=== PATIENT | male | born 1985 | race African-American/Black ===

== ENCOUNTER 2016-09-23 07:21 | Inpatient (IN) | payer BC ==
[~2016-09-23] VITALS: Ht 188 cm; Wt 128.2 kg
[~2016-09-23 07:21] MED LIST: AMOXICILLIN500 MG PO; MOTRIN800 MG PO
[2016-09-23 07:28] VITALS: BP 148/84
[2016-09-23] MEDS ORDERED: LISINOPRIL20 MG PO (07:28)
[2016-09-23] MEDS ORDERED: NIFEDIPINE ER60 M1 PO (07:29)
[2016-09-23] MEDS ORDERED: HYDROCHLOROTHIA25 M1 PO (07:29)
[2016-09-23] MEDS ORDERED: CARVEDILOL25 MG PO (07:29)
[2016-09-23 08:11] LABS: BILIRUBIN NEGATIVE (NEGATIVE); BLOOD TRACE-LYSED (NEGATIVE); CLARITY CLEAR (CLEAR); COLOR YELLOW (YELLOW); GLUCOSE 3+ (NEGATIVE); KETONE NEGATIVE (NEGATIVE); LEUKO ESTERASE NEGATIVE (NEGATIVE); NITRITE NEGATIVE (NEGATIVE); PH 5.5 (5.0-9.0); PROTEIN TRACE (NEGATIVE); SPECIFIC GRAVITY <= 1.005 (1.005-1.030); UROBILINOGEN 0.2 E.U./dl (0.2-1.0)
[2016-09-23 08:17] LABS: BASO % 0.2 % (0.0-1.0); EOS # 0.2 10*3/uL (0.0-0.4); EOS % 1.2 % (1.0-4.0); HEMATOCRIT 40.3 % (42.0-52.0); HEMOGLOBIN 14.3 g/dl (14.0-18.0); IG # 0.1 10*3/uL (0.0-0.1); LYMPH # 2.2 10*3/uL (1.3-4.4); MEAN CELL VOLUME 82.1 fl (80.0-94.0); MEAN CORPUSCULAR HGB 29.1 pg (27.0-31.0); MEAN CORPUSCULAR HGB CONC 35.5 g/dl (33.0-37.0); MONO # 0.9 10*3/uL (0.1-1.0); MONO % 6.7 % (3.0-9.0); NEUT # 9.6 10*3/uL (2.3-7.9); NEUT % 74.5 % (47.0-73.0); PLATELET COUNT AUTOMATED 312 10*3/uL (130-400); RED BLOOD COUNT 4.91 10*6/uL (4.50-5.90); RED CELL DISTRI WIDTH 12.3 % (0-14.5); WHITE BLOOD COUNT 12.9 10*3/uL (4.8-10.8)
[2016-09-23 08:22] LABS: RBC 0-2 rbc/hpf (0-2)
[2016-09-23 08:23] LABS: BACTERIA TRACE
[2016-09-23 08:24] LABS: URINE REFLEX COMMENT NO (NO)
[2016-09-23 08:30] VITALS: BP 148/92
[2016-09-23 08:30] LABS: POTASSIUM 4.5 mmol/L (3.5-5.1)
[2016-09-23 09:30] VITALS: BP 138/82
[2016-09-23 10:19] VITALS: BP 145/87
[2016-09-23 10:45] VITALS: BP 155/93
[2016-09-23 11:28] LABS: CKMB 2.5 ng/ml (0.5-3.6); CPK 520 U/L (39-308)
[2016-09-23 11:35] LABS: TROPONIN I < 0.015 ng/ml (<0.045)
[2016-09-23 13:54] LABS: URINE AMPHETAMINES < 1000 (1000ng/ml); URINE BARBITURATES < 200 (200ng/ml); URINE COCAINE < 300 (300ng/ml)
[2016-09-23 16:01] VITALS: BP 162/98
[2016-09-23 18:05] LABS: CKMB 2.4 ng/ml (0.5-3.6); CPK 480 U/L (39-308)
[2016-09-23 18:08] LABS: TROPONIN I < 0.015 ng/ml (<0.045)
[2016-09-24] VITALS: BP 168/101
[2016-09-24 00:45] LABS: CKMB 2.6 ng/ml (0.5-3.6); CPK 501 U/L (39-308); TROPONIN I < 0.015 ng/ml (<0.045)
[2016-09-24 05:55] LABS: BASO % 0.3 % (0.0-1.0); EOS # 0.2 10*3/uL (0.0-0.4); EOS % 2.1 % (1.0-4.0); HEMATOCRIT 42.1 % (42.0-52.0); HEMOGLOBIN 14.8 g/dl (14.0-18.0); IG # 0.1 10*3/uL (0.0-0.1); LYMPH # 2.5 10*3/uL (1.3-4.4); LYMPH % 21.5 % (27.0-41.0); MEAN CELL VOLUME 83.5 fl (80.0-94.0); MEAN CORPUSCULAR HGB 29.4 pg (27.0-31.0); MEAN CORPUSCULAR HGB CONC 35.2 g/dl (33.0-37.0); MEAN PLATELET VOLUME 11.2 fl (9.6-12.3); MONO # 0.8 10*3/uL (0.1-1.0); NEUT # 7.9 10*3/uL (2.3-7.9); NEUT % 68.7 % (47.0-73.0); PLATELET COUNT AUTOMATED 317 10*3/uL (130-400); RED BLOOD COUNT 5.04 10*6/uL (4.50-5.90); RED CELL DISTRI WIDTH 12.7 % (0-14.5); WHITE BLOOD COUNT 11.5 10*3/uL (4.8-10.8)
[2016-09-24 05:59] LABS: HEMOGLOBIN A1c 11.3 % (4.8-5.6)
[2016-09-24 06:06] LABS: CHLORIDE 104 mmol/L (98-107); SODIUM 138 mmol/L (136-145)
[2016-09-24 06:12] LABS: INTERNATIONAL NORM RATIO 0.9 (2.0-3.5)
[2016-09-24 06:17] LABS: ALBUMIN 3.4 gm/dl (3.1-4.5); ALKALINE PHOSPHATASE 118 U/L (45-117); BILIRUBIN, TOTAL 0.8 mg/dl (0.2-1.0); CARBON DIOXIDE 27 mmol/L (21-32); CHOLESTEROL 128 mg/dL (<200); EST GLOM FILT AFRICAN AMERICAN > 60 ml/min; GLUCOSE 321 mg/dL (65-99); HDL CHOLESTEROL 23 mg/dl (40-60); LDL CHOLESTEROL 75 mg/dL (9-159); MAGNESIUM 2.2 mg/dL (1.5-2.1); PHOSPHOROUS 2.9 mg/dL (2.5-4.9); SGOT/AST 79 IU/L (3-35); SGPT/ALT 69 U/L (12-78); THYROID STIM HORMONE (HS) 0.904 uIU/ml (0.358-4.75); TOTAL PROTEIN 7.6 gm/dL (6.4-8.2); TRIGLYCERIDES 152 mg/dl (<150); VLDL CHOLESTEROL 30 mg/dL (6-40)
[2016-09-24 06:18] LABS: BUN 17 mg/dl (7-24)
[2016-09-24 06:52] LABS: VITAMIN D, 25-HYDROXY 22.8 ng/mL (30-100)
[2016-09-24 08:00] VITALS: BP 164/100
[2016-09-24] MEDS ORDERED: APRESOLINE10 MG PO (11:06)
[2016-09-24 11:08] VITALS: BP 147/94
[2016-09-24] MEDS ORDERED: HUMALOG100 U/ML SC (11:10)
[2016-09-24] MEDS ORDERED: LEVEMIR10 ML SC ×2 (11:10→16:53)
[2016-09-24 14:18] VITALS: BP 153/80
[2016-09-24 16:00] VITALS: BP 139/79
== END 2016-09-24 18:16 | disposition home or self-care (01) | DRG 637 ==
LOC: ED 07:21 → EDHOLD 09:15 → ICCU 09:26
PROVIDERS: Emergency Medicine; Internal Medicine
DX: E11.00 Type 2 diabetes mellitus with hyperosmolarity without nonketotic hyperglycemic-hyperosmolar coma (NKHHC) (principal); N17.0 Acute kidney failure with tubular necrosis; E87.1 Hypo-osmolality and hyponatremia; I10 Essential (primary) hypertension; D72.820 Lymphocytosis (symptomatic); F17.210 Nicotine dependence, cigarettes, uncomplicated; Z82.49 Family history of ischemic heart disease and other diseases of the circulatory system; Z91.041 Radiographic dye allergy status; Z80.8 Family history of malignant neoplasm of other organs or systems; Z79.899 Other long term (current) drug therapy

== ENCOUNTER 2017-03-24 20:59 | Inpatient (IN) | payer SELFPAY ==
[~2017-03-24] VITALS: Ht 187.9 cm; Wt 129.0 kg
--- NOTE | ~2017-03-24 | PR ---
[place], [place] PROGRESS NOTE NAME: ALFRED BLANTON UNIT #: [id number] ROOM: 515 DOCTOR: SANKET WHITT MD BIRTHDATE: [birth year] DOS: SUBJECTIVE: The patient has no complaints today. His blood pressure did go up during the night and was given one dose of clonidine. The pressure did come down after the medicine was given. This morning, he does not have any complaints of chest pains, but his pressure is starting to go up again. OBJECTIVE: VITAL SIGNS: When I examined him, his blood pressure was 160/92, pulse of 78, respirations 18, temperature 98.3. LUNGS: Clear. HEART: Regular. ABDOMEN: Obese, soft, nontender. EXTREMITIES: Without any edema. ASSESSMENT AND PLAN: 1. Benign hypertension, poorly controlled. Clonidine will be started. He is on multiple other medications. If that brings the pressure down, the plan is to discharge him to home. 2. Chest pains, with negative workup so far. SANKET WHITT MD CM:PNTRANS [id number] SANKET WHITT MD 03/26/172133 interface
--- NOTE | ~2017-03-24 | PR ---
[place], [place] PROGRESS NOTE [id number] UN[facility] #: [id number] ROOM: 515 DOCTOR: SANKET WHITT MD BIRTHDATE: [birth year] DOS: SUBJECTIVE: The patient is doing fine without any complaints this morning. OBJECTIVE: VITAL SIGNS: Blood pressure is 131/80, pulse of 58, respirations 18 and temperature 97.8. LUNGS: Clear. HEART: Regular. ABDOMEN: Obese, soft, nontender. EXTREMITIES: Without any edema. LABORATORY DATA: Echocardiogram done shows mild left ventricular hypertrophy with global hypokinesis with reduced systolic ejection fraction. Stress test performed earlier showed no perfusion defects with evidence of dilated cardiomyopathy. ASSESSMENT AND PLAN: 1. Dilated cardiomyopathy with poorly controlled hypertension with a negative stress test on medications, pressure is improving. 2. Hypokalemia. Supplementation will be given. The patient is advised to follow up with his physicians. 3. Type 2 diabetes mellitus, insulin dependent. Blood sugars have been controlled here. SANKET WHITT MD CM:PNTRANS [id number] SANKET WHITT MD 03/27/17 2234 interface
--- NOTE | ~2017-03-24 | WRIGHTHP ---
[place], [place] PATIENT HISTORY AND PHYSICAL EXAM NAME: ALFRED BLANTON [facility] #: [id number] UNIT #: [id number] ROOM: [facility] DOCTOR: DAVID EVANGELISTA MD BIRTHDATE: [birth year] DOS: 03/25/2017 HISTORY OF PRESENT ILLNESS: The patient is a 31-year-old gentleman who presented to the Emergency Department with complaints of chest pains when he was at work. 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 The patient rested for a few minutes, but the pain continued. The pain was sharp and stabbing and substernal and radiated into the back. The patient was given aspirin and nitro, which helped his pain and he came to the Emergency Department. The patient was admitted to [facility] and his cardiac enzymes were checked and finally he was taken for a cardiac stress test by Dr. Sullivan, which was normal. Case was discussed with Dr. Sullivan today and the patient has been cleared for discharge to home. REVIEW OF SYSTEMS: LUNGS: No increasing shortness of breath or wheezing. GASTROINTESTINAL: No nausea, vomiting, diarrhea or constipation. CARDIOVASCULAR: Stabbing chest pains. SOCIAL HISTORY: Smokes cigarettes occasionally. Denies any alcohol or drug abuse. FAMILY HISTORY: Noncontributory. PAST MEDICAL HISTORY: The patient has past medical history of hypertension, type 2 diabetes mellitus, obesity. HOME MEDICATIONS: Nifedipine, losartan, hydrochlorothiazide, Coreg. PHYSICAL EXAMINATION: GENERAL: Alert and oriented x 3, in no visible distress. HEENT AND NECK: Extraocular movements are intact. Sclerae are anicteric. Oral mucosa is moist and clean. No obvious facial weakness. Neck is supple without any lymphadenopathy. No thyromegaly. No JVD. No carotid arterial bruits. LUNGS: Clear to auscultation. No wheezing. No rhonchi. CARDIOVASCULAR SYSTEM: Heart rate is regular in rate and rhythm. S1 and S2 normally audible. No significant murmur or any other abnormal cardiac sounds. ABDOMEN: Soft, nontender. No obvious organomegaly. Bowel sounds are present. No obvious herniation. EXTREMITIES: Without significant cyanosis or edema. Warm to touch. CENTRAL NERVOUS SYSTEM: Alert and oriented x 3. Cranial nerves II-XII are intact. Speech is normal. The patient is able to move all extremities. Normal muscle strength. Deep tendon reflexes are equal on both sides. Plantars were downgoing. LABORATORY DATA: Negative cardiac enzymes. Cardiac stress test showing 50% left ventricular ejection fraction and dilated left ventricle, but no signs of reversible ischemia. Chest x-ray without any acute abnormality. BUN and creatinine 23 and 1.5. Normal CBC. [place], [place] PATIENT HISTORY AND PHYSICAL EXAM NAME: ALFRED BLANTON UNIT #: [id number] ROOM: [facility] DOCTOR: DAVID EVANGELISTA MD BIRTHDATE: [birth year] IMPRESSION: 1. The patient with chest pains from uncertain etiology. 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 2. Dilated cardiomyopathy with left ventricular ejection fraction of about 50%, probable hypertensive cardiomyopathy. Blood pressure medications were adjusted by Dr. Maldonado. Plan to keep the patient until tomorrow morning and Dr. Sullivan will adjust his medications before discharging him to home. Cardiac enzymes are normal. Stress test results as mentioned above. DISCHARGE MANAGEMENT: Coreg 25 mg b.i.d., hydrochlorothiazide 12.5 mg a day, losartan 25 mg a day, nifedipine 60 mg a day. DAVID EVANGELISTA MD CM:HISPHYS:PATIENT HISTORY AND PHYSICAL EXAMINATION [id number] DAVID EVANGELISTA MD 03/25/172024 interface
--- NOTE | ~2017-03-24 | DS ---
[place], [place] DISCHARGE SUMMARY [id number] UN[facility] #: [id number] ROOM: 515 DOCTOR: SANKET WHITT MD BIRTHDATE: [birth year] DOS: 03/27/2017 HOSPITAL COURSE: The patient is 31 years old, not known to me. Please refer H and P dictated by Dr. Ayala and consult note dictated by Dr. Sullivan for further details. The patient was admitted with complaints of chest pain. After admission, had a rule out IN protocol, this has come back negative. An echocardiogram and a stress test was performed. Echocardiogram showed evidence of cardiomyopathy. Stress test also confirmed the evidence of dilated cardiomyopathy, but did not show any reversible perfusion defects. His blood pressure has been poorly controlled. His medications were adjusted here with better control of the blood pressure. He also has underlying type 2 diabetes mellitus, insulin-dependent. Blood sugars are controlled. Hypokalemia was noted this morning and the patient has been placed on supplements in addition. The plan is to discharge him to home today if cleared by Dr. uSllivan. SANKET WHITT MD CM:DISCHARG [id number] SANKET WHITT MD 03/27/17 1445 interface
[~2017-03-24 20:59] MED LIST changes: +APRESOLINE10 MG PO; +CARVEDILOL25 MG PO; +HUMALOG100 U/ML SC; +HYDROCHLOROTHIA25 M1 PO; +LEVEMIR10 ML SC; +LISINOPRIL20 MG PO; +NIFEDIPINE ER60 M1 PO
[2017-03-24 21:00] VITALS: BP 186/108
[2017-03-24 21:18] LABS: BASO # 0.1 10*3/uL (0.0-0.1); BASO % 0.4 % (0.0-1.0); EOS # 0.1 10*3/uL (0.0-0.4); EOS % 1.1 % (1.0-4.0); HEMATOCRIT 45.8 % (42.0-52.0); HEMOGLOBIN 15.8 g/dl (14.0-18.0); LYMPH % 17.6 % (27.0-41.0); MEAN CELL VOLUME 85.8 fl (80.0-94.0); MEAN CORPUSCULAR HGB 29.6 pg (27.0-31.0); MEAN CORPUSCULAR HGB CONC 34.5 g/dl (33.0-37.0); MEAN PLATELET VOLUME 10.5 fl (9.6-12.3); MONO # 1.1 10*3/uL (0.1-1.0); MONO % 9.8 % (3.0-9.0); NEUT # 7.9 10*3/uL (2.3-7.9); NEUT % 70.8 % (47.0-73.0); PLATELET COUNT AUTOMATED 317 10*3/uL (130-400); RED BLOOD COUNT 5.34 10*6/uL (4.50-5.90); RED CELL DISTRI WIDTH 13.8 % (0-14.5); WHITE BLOOD COUNT 11.2 10*3/uL (4.8-10.8)
[2017-03-24 21:42] LABS: ACT PARTIAL THROMBO TIME 25.5 SECONDS (20.8-31.5)
[2017-03-24 21:48] LABS: ALBUMIN 3.4 gm/dl (3.1-4.5); ALKALINE PHOSPHATASE 94 U/L (45-117); BUN 23 mg/dl (7-24); CHLORIDE 107 mmol/L (98-107); CREATININE 1.52 mg/dL (0.70-1.30); MAGNESIUM 2.3 mg/dL (1.5-2.1); POTASSIUM 3.8 mmol/L (3.5-5.1); SGPT/ALT 44 U/L (12-78); SODIUM 142 mmol/L (136-145); TOTAL PROTEIN 7.7 gm/dL (6.4-8.2)
[2017-03-24 21:50] LABS: SGOT/AST 26 IU/L (3-35); TROPONIN I 0.023 ng/ml (<0.045)
[2017-03-24 22:44] VITALS: BP 123/76
--- NOTE | 2017-03-24 22:51 | NUR ---
PATIENT REPORTS A SPLITTING HEADACHE BUT HAS RELIEF FROM HIS CHEST DISCOMFORT AND SOB. LIGHTS DIMMED FOR PATIENT AND DOOR CLOSED. PATIENT HAS CALL LIGHT WITHIN REACH.
[2017-03-24 23:32] VITALS: BP 131/76
[2017-03-25 00:30] VITALS: BP 157/87
--- NOTE | 2017-03-25 00:30 | NUR ---
A 31, admitted to , under the services of Dr. TONJA ROYAL,DAVID Cavanaugh with a diagnosis of CHEST PAIN. Chief complaint is CHEST PAIN. Patient arrived via bed from ER. Monitor applied. Initial assessment completed. Vital signs taken and recorded. DR. TONJA ROYAL,DAVID Cavanaugh notified of admission to the unit. Orders received. See assessment for past medical history, medications and allergies. Patient and/or family oriented to unit. [facility] visitation policy reviewed. Clothing/patient valuable form completed. DENIS CARRILLO
[2017-03-25] MEDS ORDERED: LEVEMIR100 UNIT/1 SQ (01:11)
[2017-03-25] MEDS ORDERED: TRAD5TAB1 PO (01:13)
--- NOTE | 2017-03-25 01:14 | NUR ---
MED REC UPDATED VIA PATIENT LIST
--- NOTE | 2017-03-25 02:27 | NUR ---
MEDICATED WITH PRN TYLENOL ORDERED FOR C/O NECK PAIN RATED A 10/10
--- NOTE | 2017-03-25 06:09 | NUR ---
ANSWERING SERVICE WAS NOTIFIED OF DR. OSORIO CONSULT. RESPONSE OF NOTIFICATION WAS OKAY I'LL SEND THAT UP TO HIM. DENIS CARRILLO
--- NOTE | 2017-03-25 06:15 | NUR ---
SPOKE TO DR HOOKER. HE HAS ORDERED A STRESS TEST AND TO OBTAIN HEART CATH AND ECHO RESULTS FROM [facility] FROM 1 YEAR AGO.
[2017-03-25 08:00] VITALS: BP 164/90
--- NOTE | 2017-03-25 08:16 | NUR ---
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
--- NOTE | 2017-03-25 10:30 | NUR ---
INFORMED CONSENT SIGNED FOR LEXISCAN WITH DR OSORIO. RESTING EKG NSR WITH A HR OF 66 AND BP 170/120. STANDING HR OF 70 AND BP 168/124. BREATH SOUNDS CLEAR WITH A POX OF 99% VIA RA. DR OSORIO PRESENT AND AWARE OF ELEVATED BP. ORDER RECEIVED TO CHANGE THE STRESS TEST FROM A CARDIOLITE TO A LEXISCAN. COMPLETED ONE MINUTE OF LEXISCAN PROTOCOL RECEIVING LEXISCAN 0.4 MG OVER 10 SECONDS. DEVELOPED SOB THAT WAS RELIEVED DURING IN RECOVERY. HAD A PEAK HR OF 84 WITH A BP OF 201/120. LAST RECOVERY HR OF 78 WITH A BP OF 186/124. AWAITING NUCLEAR IMAGING IN STABLE CONDITION.
[2017-03-25 12:00] VITALS: BP 163/86
--- NOTE | 2017-03-25 14:55 | NUR ---
PT AT STRESS TEST. UNABLE TO CONDUCT 1130 BLOOD GLUCOSE CHECK.
[2017-03-25 16:00] VITALS: BP 167/94
--- NOTE | 2017-03-25 19:30 | NUR ---
ASSUMED CARE OF PT AT THIS TIME, RESPS EASY AND NONLABORED WITH NO S/S OF DISTRESS CALL LIGHT WITH IN REACH
--- NOTE | 2017-03-25 20:48 | NUR ---
CALL PLACED TO R/T INCREASED BP, NEW ORDER FOR CATAPRESS X 1
[2017-03-26] VITALS: BP 159/82
--- NOTE | 2017-03-26 06:00 | NUR ---
SLEEPING. NO DISTRESS NOTED. RESPIRATIONS EASY. VSS. CALL LIGHT WITHIN REACH
[2017-03-26 08:00] VITALS: BP 156/82
--- NOTE | 2017-03-26 08:05 | NUR ---
PATIENT RESTING IN BED CALL LIGHT IN REACH RESP ERNL, SEE SHIFT ASSESSMENT
--- NOTE | 2017-03-26 08:30 | NUR ---
Medical Insurance Coder in to talk to patient. Patient states lives at HOME with HIS FIANCE. There are "A FEW" steps in the home. Physician: DR FABIAN Pharmacy: [facility] Home health services: NONE Patient's level of ADLs: INDEPENDENT Patient has working utilities: YES DME: NONE Follow-up physician's appointment after d/c: PREFERS TO MAKE HIS OWN APPT Does patient want to access PORTAL?: Discharge plan HOME. MANJU WALKER
--- NOTE | 2017-03-26 14:35 | NUR ---
Nutritional Support Services Note: Discussing with pt NCS diet, pt has no questions at this time. Was consulted at last admission on 1800cal diet. Doing well at this time. Encouraged follow up if needed. BS is 119. Amanda Parmar
[2017-03-26 16:00] VITALS: BP 118/82; BP 122/52
--- NOTE | 2017-03-26 19:03 | NUR ---
22 g iv catheter placed in the left ac, 2 attempts, pt tolerated well.
[2017-03-26 20:00] VITALS: BP 134/77
[2017-03-27] VITALS: BP 131/80
[2017-03-27 06:45] LABS: BASO % 0.4 % (0.0-1.0); EOS # 0.2 10*3/uL (0.0-0.4); EOS % 1.8 % (1.0-4.0); HEMATOCRIT 46.2 % (42.0-52.0); HEMOGLOBIN 15.4 g/dl (14.0-18.0); LYMPH # 2.9 10*3/uL (1.3-4.4); LYMPH % 26.5 % (27.0-41.0); MEAN CELL VOLUME 84.9 fl (80.0-94.0); MEAN CORPUSCULAR HGB 28.3 pg (27.0-31.0); MEAN CORPUSCULAR HGB CONC 33.3 g/dl (33.0-37.0); MEAN PLATELET VOLUME 10.5 fl (9.6-12.3); MONO % 8.7 % (3.0-9.0); NEUT # 6.9 10*3/uL (2.3-7.9); NEUT % 62.1 % (47.0-73.0); PLATELET COUNT AUTOMATED 319 10*3/uL (130-400); RED BLOOD COUNT 5.44 10*6/uL (4.50-5.90); RED CELL DISTRI WIDTH 13.6 % (0-14.5)
[2017-03-27 07:09] LABS: BUN 24 mg/dl (7-24); CHLORIDE 102 mmol/L (98-107); CREATININE 1.51 mg/dL (0.70-1.30); POTASSIUM 3.2 mmol/L (3.5-5.1); SODIUM 139 mmol/L (136-145)
[2017-03-27 08:00] VITALS: BP 150/92
[2017-03-27] MEDS ORDERED: LOSARTAN POTASS25 M1 PO (08:14)
[2017-03-27] MEDS ORDERED: HYDR12.5C PO (08:14)
[2017-03-27] MEDS ORDERED: CLONIDINE HCL0.2 MG PO (08:14)
[2017-03-27] MEDS ORDERED: NIFEDIPINE ER30 M1 PO (08:14)
[2017-03-27] MEDS ORDERED: K-TAB10 MEQ PO (08:35)
[2017-03-27 09:25] VITALS: BP 152/84
--- NOTE | 2017-03-27 09:39 | NUR ---
Discharge instructions reviewed with patient/family. Patient receptive and verbalizes understanding. Follow-up care arranged. Written instructions given to patient/family. HEPLOCK REMOVED. PATIENT AMBULATORY OFF FLOOR. PRESCRIPTIONS GIVEN. STEFAN HLEMS
== END 2017-03-27 09:39 | disposition home or self-care (01) | DRG 313 ==
LOC: ED 20:59 → 5E 23:25 → EDHOLD 23:25 → 5E 23:45
PROVIDERS: Emergency Medicine; Family Medicine; ADMIT Internal Medicine
PROC: 4A02XM4 Measurement of Cardiac Total Activity, External Approach (ICD-10-PCS; principal; 2017-03-25)
PROC: 3E073KZ Introduction of Other Diagnostic Substance into Coronary Artery, Percutaneous Approach (ICD-10-PCS; principal; 2017-03-25)
DX: R07.9 Chest pain, unspecified (principal); N17.0 Acute kidney failure with tubular necrosis; I42.0 Dilated cardiomyopathy; E11.9 Type 2 diabetes mellitus without complications; D72.829 Elevated white blood cell count, unspecified; I11.9 Hypertensive heart disease without heart failure; E83.41 Hypermagnesemia; F17.210 Nicotine dependence, cigarettes, uncomplicated; E87.6 Hypokalemia; Z79.4 Long term (current) use of insulin; Z80.8 Family history of malignant neoplasm of other organs or systems; Z82.49 Family history of ischemic heart disease and other diseases of the circulatory system

== ENCOUNTER 2017-07-15 05:01 | Inpatient (IN) | payer SELFPAY ==
[2017-07-15] VITALS (40 sets, daily range): BP systolic 116–250; BP diastolic 61–139
[~2017-07-15] VITALS: Ht 187.9 cm; Wt 132.9 kg
--- NOTE | ~2017-07-15 | DS ---
[place], [place] DISCHARGE SUMMARY NAME: ALFRED BLANTON [facility] #: [id number] UNIT #: [id number] ROOM: 528 DOCTOR: DAVID EVANGELISTA MD BIRTHDATE: [birth year] DOS: 07/16/2017 DISCHARGE DIAGNOSES: 1. Severe hypertension from patient not taking his meds. 2. Nausea, vomiting, possibly from severe hypertension. 3. Hypokalemia, treated with extra potassium supplements. 4. Minimally elevated troponin I levels, considered not to be significant by his sales operations manager, Dr. Weir. 5. Obesity. The patient worked with dietary. 6. History of benign essential hypertension. 7. Uncontrolled type 2 diabetes mellitus with poor compliance with treatment. HOSPITAL COURSE: The patient presented with nausea and vomiting at work and was found to have systolic blood pressure as high as 220. The patient was given 3 doses of hydralazine in the Emergency Department and admitted with a nitrate infusion to the ICU. The patient's blood pressure was gradually brought down below 150 systolic. The patient's blood pressure medications have been adjusted and apparently he was not taking them at home resulting in severe hypertension. The patient's nausea and vomiting resolved and he is feeling much better now. All prescriptions are being given to him, which will be filled by the pharmacy here at [facility] before he goes home because he says he is unable to afford his medications and he will be getting his medical insurance next month. 1. Uncontrolled type 2 diabetes mellitus with poor compliance with treatment. His blood sugars are very well controlled now. 2. Hypokalemia apparently from nausea and vomiting, replaced with extra potassium supplements. 3. The patient has to see his primary care physician, Dr. Travis Johnston next week and to follow up with his sales operations manager, Dr. Weir. 4. Very slightly borderline elevation of troponin I levels, which reduced during his stay at the hospital. Dr. Weir, his sales operations manager evaluated them and considered them as not significant and not cardiac related. LABORATORY DATA: Troponin I levels reduced to 0.054 from 0.071 at admission. Potassium level of 3.1, but he is getting extra potassium supplements. Urine cultures were negative. Lipid panel was normal. BUN and creatinine 27 and 1.57. DISCHARGE MANAGEMENT: Nifedipine 30 mg daily, losartan 25 mg daily, Tylenol p.r.n., Imdur 60 mg daily, clonidine 0.2 mg b.i.d., Levemir insulin subQ 20 units daily, aspirin 81 mg a day, Coreg 50 mg b.i.d. The patient takes Ambien 5 mg at bedtime p.r.n. for sleep. Follow up with Dr. Travis Johnston next week and with his sales operations manager, Dr. Weir. [place], [place] DISCHARGE SUMMARY NAME: ALFRED BLANTON Jag[facility] UNIT #: [id number] ROOM: 528 DOCTOR: DAVID EVANGELISTA MD BIRTHDATE: [birth year] DAVID EVANGELISTA MD CM:DISCHARG [id number] DAVID EVANGELISTA MD 07/16/17 1241 interface
--- NOTE | ~2017-07-15 | CON ---
[place], [place] REPORT OF CONSULTATION [id number] #: [id number] ROOM: 528 DOCTOR: MARGRET ROYAL [facility] BIRTHDATE: [birth year] DOS: 07/16/2017 HISTORY OF PRESENT ILLNESS: The patient is a 32-year-old black -[place]ong[place]ian individual male and come in with hypertensive crisis. I have seen the patient for hypertension, adjust the medication, but came in at this time with hypertensive crisis. The patient has left lung hypertrophy and diminished compliance of the left ventricle. The patient has history of coronary artery disease, dyslipidemia, and hypertension. Even at the time of my exam also, the patient was hypertensive and further adjustment of medications done. When I was recalled for consult at that time also adjust the medication and the patient has history of hypertension and diminished compliance of the left ventricle, underlying left lung hypertrophy also considered. Obesity is noted. PHYSICAL EXAMINATION: GENERAL: Found to be hypertensive severe and moderate obesity. NECK: No jugular vein distention noted. SKIN: Warm, not diaphoretic. LUNGS: No rales. HEART: S1, S2 regular. ABDOMEN: Soft ____. DIAGNOSES: Hypertensive crisis. No acute coronary syndrome. PLAN: I optimize the medical therapy and weight reduction and follow the diet closely and instructed the patient appropriately. THERESA OSWALD MD CM:CONSTR:REPORT OF CONSULTATION 1519 07/17/17 0038 interface DAVID EVANGELISTA MD
--- NOTE | ~2017-07-15 | WRIGHTHP ---
[place], [place] PATIENT HISTORY AND PHYSICAL EXAM NAME: ALFRED BLANTON [facility] #: [id number] UNIT #: [id number] ROOM: 528 DOCTOR: DAVID EVANGELISTA MD BIRTHDATE: [birth year] DOS: 07/15/2017 HISTORY OF PRESENT ILLNESS: The patient is a 32-year-old gentleman with a past medical history of: 1. Benign essential hypertension. 2. Uncontrolled type 2 diabetes mellitus. 3. Obesity. 4. Poor compliance with treatment and poor insight into medical problems. The patient presented to the Emergency Department with complaints of nausea and vomiting at work. The patient was found to be severely hypertensive by Dr. Osman with blood pressure as high as 220 systolic and was given 3 doses of hydralazine and finally admitted to [facility] ICU with nitroglycerin infusion. The patient's blood pressures was gradually brought down to 150 systolic to stabilize him. His cad designer, Dr. Weir evaluated the patient and increased his blood pressure medications. The moment the patient was given clonidine and his home meds his blood pressure became low at 116 systolic over 61 diastolic and his blood pressure medications were held back by the ICU nurse. The patient is still asymptomatic. No nausea, vomiting, no headaches. No blurring of vision. No dizziness, no fainting episode. No palpitations and no chest pains. REVIEW OF SYSTEMS: LUNGS: No shortness of breath or wheezing. GASTROINTESTINAL: Had nausea and vomiting at home. CARDIOVASCULAR SYSTEM: No chest pains or palpitations. LUNGS: No shortness of breath or wheezing. FAMILY HISTORY: Noncontributory. SOCIAL HISTORY: The patient has girlfriend who is a nurse and two children, just stopped smoking cigarettes. Denies any alcohol or drug abuse. HOME MEDICATIONS: The patient was taking nifedipine, losartan, Imdur, clonidine, aspirin, Coreg at home along with Vicodin. ALLERGIES: KNOWN ALLERGIES TO IODINE. PHYSICAL EXAMINATION: GENERAL: Alert, oriented x 3, no visible distress, moderately obese. VITAL SIGNS: Blood pressure 116/63, heart rate 71 beats minute, breathing 18 times a minute, temperature 98.1 degrees Fahrenheit. HEENT AND NECK: Extraocular movements are intact. Sclerae are anicteric. Oral mucosa is moist and clean. No obvious facial weakness. Neck is supple without any lymphadenopathy. No thyromegaly. No JVD. No carotid arterial bruits. LUNGS: Clear to auscultation. No wheezing. No rhonchi. CARDIOVASCULAR SYSTEM: Heart rate is regular in rate and rhythm. S1 and S2 normally audible. No significant murmur or any other abnormal cardiac sounds. ABDOMEN: Soft, nontender. No obvious organomegaly. Bowel sounds are present. No obvious herniation. [place], [place] PATIENT HISTORY AND PHYSICAL EXAM NAME: ALFRED BLANTON UNIT #: [id number] ROOM: 528 DOCTOR: DAVID EVANGELISTA MD BIRTHDATE: [birth year] EXTREMITIES: Without significant cyanosis or edema. Warm to touch. CENTRAL NERVOUS SYSTEM: Alert and oriented x 3. Cranial nerves II-XII are intact. Speech is normal. The patient is able to move all extremities. Normal muscle strength. Deep tendon reflexes are equal on both sides. Plantars were downgoing. LABORATORY DATA: BUN and creatinine at 27 and 1.57, potassium level 5.2. Troponin level elevated to 0.071, improving and is down to 0.054. IMPRESSION: 1. Severe hypertension secondary to patient not taking his blood pressure medications at home. After restarting his medications his blood pressure has normalized. Dr. Weir his cad designer had increased his blood pressure medications, but he is not tolerating the higher dose very well and he is becoming hypotensive, so the doses had to be reduced. We will monitor him till tomorrow and if his blood pressures remain normal he may be able to go home. 2. Type 2 diabetes mellitus. Blood sugars are being monitored and reasonably controlled. 3. Hypokalemia, to be replaced with extra potassium supplements and potassium levels will be repeated tomorrow. The patient kept on no concentrated sweet diet. DAVID EVANGELISTA MD CM:HISPHYS:PATIENT HISTORY AND PHYSICAL EXAMINATION 15 08 DAVID EVANGELISTA MD 07/15/172107 interface
[~2017-07-15 05:01] MED LIST changes: +CLONIDINE HCL0.2 MG PO; +HYDR12.5C PO; +K-TAB10 MEQ PO; +LEVEMIR100 UNIT/1 SQ; +LOSARTAN POTASS25 M1 PO; +NIFEDIPINE ER30 M1 PO; +TRAD5TAB1 PO
[2017-07-15 05:48] LABS: BASO # 0.1 10*3/uL (0.0-0.1); BASO % 0.4 % (0.0-1.0); EOS # 0.3 10*3/uL (0.0-0.4); EOS % 2.2 % (1.0-4.0); HEMATOCRIT 39.8 % (42.0-52.0); HEMOGLOBIN 13.4 g/dl (14.0-18.0); LYMPH # 3.5 10*3/uL (1.3-4.4); LYMPH % 27.1 % (27.0-41.0); MEAN CORPUSCULAR HGB 28.9 pg (27.0-31.0); MEAN CORPUSCULAR HGB CONC 33.7 g/dl (33.0-37.0); MEAN PLATELET VOLUME 10.7 fl (9.6-12.3); MONO # 1.2 10*3/uL (0.1-1.0); MONO % 9.2 % (3.0-9.0); NEUT # 7.9 10*3/uL (2.3-7.9); NEUT % 60.8 % (47.0-73.0); PLATELET COUNT AUTOMATED 295 10*3/uL (130-400); RED BLOOD COUNT 4.63 10*6/uL (4.50-5.90); RED CELL DISTRI WIDTH 13.1 % (0-14.5); WHITE BLOOD COUNT 13.1 10*3/uL (4.8-10.8)
[2017-07-15 06:05] LABS: ALBUMIN 3.3 gm/dl (3.1-4.5); ALKALINE PHOSPHATASE 91 U/L (45-117); BUN 27 mg/dl (7-24); CHLORIDE 107 mmol/L (98-107); CREATININE 1.57 mg/dL (0.70-1.30); LIPASE 138 U/L (73-393); POTASSIUM 3.2 mmol/L (3.5-5.1); SGOT/AST 33 IU/L (3-35); SGPT/ALT 56 U/L (12-78); SODIUM 144 mmol/L (136-145)
[2017-07-15 06:21] LABS: INTERNATIONAL NORM RATIO 0.9 (2.0-3.5); TROPONIN I 0.071 ng/ml (<0.045)
[2017-07-15 06:37] LABS: BILIRUBIN NEGATIVE (NEGATIVE); BLOOD NEGATIVE (NEGATIVE); CLARITY SL CLOUDY (CLEAR); COLOR YELLOW (YELLOW); GLUCOSE NEGATIVE (NEGATIVE); KETONE NEGATIVE (NEGATIVE); LEUKO ESTERASE NEGATIVE (NEGATIVE); NITRITE NEGATIVE (NEGATIVE); SPECIFIC GRAVITY 1.025 (1.005-1.030); UROBILINOGEN 0.2 E.U./dl (0.2-1.0)
[2017-07-15 06:54] LABS: BACTERIA TRACE
[2017-07-15] MEDS ORDERED: HYDROCHLOROTHIA25 M1 PO (08:07)
[2017-07-15] MEDS ORDERED: ADVIL200 MG PO (08:10)
[2017-07-15 12:23] LABS: THYROID STIM HORMONE (HS) 1.71 uIU/ml (0.358-4.75)
[2017-07-15 12:36] LABS: TROPONIN I 0.054 ng/ml (<0.045)
[2017-07-16 00:33] VITALS: BP 142/78; BP 147/90
[2017-07-16 08:00] VITALS: BP 148/89
[2017-07-16 08:26] LABS: BUN 22 mg/dl (7-24); CHLORIDE 102 mmol/L (98-107); CREATININE 1.27 mg/dL (0.70-1.30); POTASSIUM 3.1 mmol/L (3.5-5.1); SODIUM 141 mmol/L (136-145)
[2017-07-16] MEDS ORDERED: IMDUR SA60 M1 PO (10:50)
[2017-07-16] MEDS ORDERED: LEVEMIR100 UNIT/1 SQ (10:50)
[2017-07-16] MEDS ORDERED: CLONIDINE HCL0.2 MG PO (10:50)
[2017-07-16] MEDS ORDERED: CARVEDILOL25 MG PO (10:50)
== END 2017-07-16 12:02 | disposition home or self-care (01) | DRG 305 ==
LOC: ED 05:01 → 5E 06:29 → ICCU 06:29 → EDHOLD 06:29 → ICCU 06:40 → 5E 18:46
PROVIDERS: Emergency Medicine Emergency Medical Services; Internal Medicine
DX: I16.9 Hypertensive crisis, unspecified (principal); E11.65 Type 2 diabetes mellitus with hyperglycemia; I10 Essential (primary) hypertension; E66.9 Obesity, unspecified; E87.6 Hypokalemia; I25.10 Atherosclerotic heart disease of native coronary artery without angina pectoris; E78.5 Hyperlipidemia, unspecified; Z68.37 Body mass index [BMI] 37.0-37.9, adult; Z91.041 Radiographic dye allergy status; Z79.82 Long term (current) use of aspirin; Z79.899 Other long term (current) drug therapy; Z91.14 Patient's other noncompliance with medication regimen

== ENCOUNTER → 2017-12-07 | Outpatient (CLI) | payer SELFPAY ==
[~2017-12-07] MED LIST changes: +ADVIL200 MG PO; +IMDUR SA60 M1 PO
== END | disposition home or self-care (01) ==
LOC: RESCLI 02:36
DX: I10 Essential (primary) hypertension (principal); R53.83 Other fatigue; Z87.891 Personal history of nicotine dependence; Z88.8 Allergy status to other drugs, medicaments and biological substances

== ENCOUNTER → 2018-09-17 | Outpatient (CLI) | payer BC ==
[2018-09-17 09:48] LABS: BASO % 0.3 % (0.0-1.0); EOS # 0.2 10*3/uL (0.0-0.4); EOS % 1.9 % (1.0-4.0); HEMATOCRIT 44.7 % (42.0-52.0); HEMOGLOBIN 14.5 g/dl (14.0-18.0); LYMPH % 19.5 % (27.0-41.0); MEAN CELL VOLUME 88.5 fl (80.0-94.0); MEAN CORPUSCULAR HGB 28.7 pg (27.0-31.0); MEAN CORPUSCULAR HGB CONC 32.4 g/dl (33.0-37.0); MEAN PLATELET VOLUME 9.8 fl (9.6-12.3); MONO % 9.9 % (3.0-9.0); NEUT # 6.9 10*3/uL (2.3-7.9); NEUT % 68.1 % (47.0-73.0); PLATELET COUNT AUTOMATED 342 10*3/uL (130-400); RED BLOOD COUNT 5.05 10*6/uL (4.50-5.90); RED CELL DISTRI WIDTH 13.2 % (0-14.5); WHITE BLOOD COUNT 10.1 10*3/uL (4.8-10.8)
[2018-09-17 10:11] LABS: ALBUMIN 3.5 gm/dl (3.1-4.5); ALKALINE PHOSPHATASE 100 U/L (45-117); BUN 19 mg/dl (7-24); CHLORIDE 107 mmol/L (98-107); CREATININE 1.47 mg/dL (0.70-1.30); POTASSIUM 3.8 mmol/L (3.5-5.1); SGOT/AST 27 IU/L (3-35); SGPT/ALT 63 U/L (12-78); SODIUM 142 mmol/L (136-145); THYROXINE (T4) TOTAL 7.8 ug/dl (4.5-12.1); TOTAL PROTEIN 7.8 gm/dL (6.4-8.2)
[2018-09-17 10:17] LABS: T3 UPTAKE 31 % (31-39)
[2018-09-18 07:04] LABS: FOLLICLE STIMULATING HORMONE 6.4 mIU/mL (1.5-12.4); LUTEINIZING HORMONE 004283 5.8 mIU/mL (1.7-8.6); PROGESTERONE 004317 0.1 ng/mL (0.0-0.5); PROLACTIN 004465 16.5 ng/mL (4.0-15.2)
== END | disposition home or self-care (01) ==
LOC: LAB 08:47 → US 09:00
PROVIDERS: Urology
DX: N50.89 Other specified disorders of the male genital organs (principal); E11.9 Type 2 diabetes mellitus without complications; I10 Essential (primary) hypertension; R53.83 Other fatigue

== ENCOUNTER → 2019-08-17 | Outpatient (CLI) | payer BC ==
[2019-08-17 11:15] LABS: BASO % 0.2 % (0.0-1.0); EOS # 0.2 10*3/uL (0.0-0.4); EOS % 1.8 % (1.0-4.0); HEMATOCRIT 44.2 % (42.0-52.0); HEMOGLOBIN 14.7 g/dl (14.0-18.0); LYMPH # 3.1 10*3/uL (1.3-4.4); LYMPH % 25.5 % (27.0-41.0); MEAN CELL VOLUME 87.9 fl (80.0-94.0); MEAN CORPUSCULAR HGB 29.2 pg (27.0-31.0); MEAN CORPUSCULAR HGB CONC 33.3 g/dl (33.0-37.0); MEAN PLATELET VOLUME 10.3 fl (9.6-12.3); MONO # 1.2 10*3/uL (0.1-1.0); MONO % 9.8 % (3.0-9.0); NEUT # 7.7 10*3/uL (2.3-7.9); NEUT % 62.5 % (47.0-73.0); PLATELET COUNT AUTOMATED 264 10*3/uL (130-400); RED BLOOD COUNT 5.03 10*6/uL (4.50-5.90); RED CELL DISTRI WIDTH 12.9 % (0-14.5); WHITE BLOOD COUNT 12.3 10*3/uL (4.8-10.8)
[2019-08-17 11:46] LABS: ALBUMIN 3.3 gm/dl (3.1-4.5); CREATININE 1.77 mg/dL (0.70-1.30); FREE T4 0.98 ng/dl (0.76-1.46); POTASSIUM 3.5 mmol/L (3.5-5.1); TOTAL PROTEIN 7.2 gm/dL (6.4-8.2)
[2019-08-17 11:50] LABS: THYROID STIM HORMONE (HS) 0.791 uIU/ml (0.358-4.75)
[2019-08-17 11:59] LABS: BILIRUBIN NEGATIVE (NEGATIVE); BLOOD 1+ (NEGATIVE); CLARITY SL CLOUDY (CLEAR); COLOR YELLOW (YELLOW); GLUCOSE NEGATIVE (NEGATIVE); KETONE NEGATIVE (NEGATIVE); PH 6.5 (5.0-9.0); SPECIFIC GRAVITY 1.015 (1.005-1.030)
[2019-08-17 12:00] LABS: LEUKO ESTERASE NEGATIVE (NEGATIVE); NITRITE NEGATIVE (NEGATIVE); UROBILINOGEN 0.2 E.U./dl (0.2-1.0)
[2019-08-17 12:02] LABS: BACTERIA TRACE; WBC 0-2 wbc/hpf (0-5)
[2019-08-17 13:24] LABS: VITAMIN D, 25-HYDROXY 16.2 ng/mL (30-100)
[2019-08-18 11:04] LABS: CREATININE,URINE 69.9 mg/dL (Not Estab.)
== END | disposition home or self-care (01) ==
LOC: LAB 10:55
PROVIDERS: Internal Medicine
DX: E11.9 Type 2 diabetes mellitus without complications (principal)

== ENCOUNTER 2021-03-04 15:22 | Emergency (ER) | payer BC ==
[~2021-03-04] VITALS: Ht 187.9 cm; Wt 122.5 kg
[2021-03-04 16:07] LABS: HEMATOCRIT 42.8 % (42.0-52.0); MEAN CELL VOLUME 91.1 fl (80.0-94.0); MEAN CORPUSCULAR HGB 29.8 pg (27.0-31.0); MEAN CORPUSCULAR HGB CONC 32.7 g/dl (33.0-37.0); MEAN PLATELET VOLUME 10.8 fl (9.6-12.3); PLATELET COUNT AUTOMATED 314 10*3/uL (130-400); RED CELL DISTRI WIDTH 14.3 % (0-14.5); WHITE BLOOD COUNT 23.9 10*3/uL (4.8-10.8)
[2021-03-04 16:29] LABS: ACT PARTIAL THROMBO TIME 22.8 SECONDS (20.0-32.1)
[2021-03-04 16:30] LABS: ALBUMIN 2.9 gm/dl (3.1-4.5); ALKALINE PHOSPHATASE 86 U/L (45-117); BUN 47 mg/dl (7-24); CHLORIDE 109 mmol/L (98-107); CREATININE 2.74 mg/dL (0.70-1.30); POTASSIUM 3.4 mmol/L (3.5-5.1); SGOT/AST 27 IU/L (3-35); SGPT/ALT 65 U/L (12-78); SODIUM 141 mmol/L (136-145); TOTAL PROTEIN 6.9 gm/dL (6.4-8.2)
[2021-03-04 16:37] LABS: PLATELET SUFFICIENCY NORMAL (NORMAL); TOTAL CELLS COUNTED 100 #CELLS
[2021-03-04 16:38] LABS: ETHYL ALCOHOL < 3.0 mg/dl (<3); TROPONIN I < 0.015 ng/ml (<0.045)
== END 2021-03-04 16:50 | disposition short-term general hospital (02) ==
LOC: ED 15:22
PROVIDERS: Emergency Medicine
DX: I70.222 Atherosclerosis of native arteries of extremities with rest pain, left leg (principal); J96.00 Acute respiratory failure, unspecified whether with hypoxia or hypercapnia; I16.1 Hypertensive emergency; I10 Essential (primary) hypertension; E11.9 Type 2 diabetes mellitus without complications; R53.1 Weakness; M62.262 Nontraumatic ischemic infarction of muscle, left lower leg; F17.210 Nicotine dependence, cigarettes, uncomplicated; Z91.041 Radiographic dye allergy status; Z79.899 Other long term (current) drug therapy; Z79.4 Long term (current) use of insulin; M79.605 Pain in left leg; R22.42 Localized swelling, mass and lump, left lower limb

== ENCOUNTER → 2021-04-12 | Outpatient (CLI) | payer BC ==
[2021-04-13 12:06] LABS: HEP B CORE AB, IGM Negative (Negative); HEPATITIS B SURFACE AB Non Reactive (.); HEPATITIS B SURFACE AG Negative (Negative); HEPATITIS C VIRUS ANTIBODY 0.1 s/co (0.0-0.9)
== END | disposition home or self-care (01) ==
LOC: LAB 11:50
PROVIDERS: ATTEND Internal Medicine
DX: N18.6 End stage renal disease (principal); Z99.2 Dependence on renal dialysis

== ENCOUNTER → 2021-04-14 | Outpatient (CLI) | payer BC ==
[2021-04-14 13:24] LABS: ALBUMIN 2.1 gm/dl (3.1-4.5); CREATININE 6.96 mg/dL (0.70-1.30); POTASSIUM 4.4 mmol/L (3.5-5.1)
== END | disposition home or self-care (01) ==
LOC: LAB 12:28
PROVIDERS: ATTEND Internal Medicine
DX: N18.9 Chronic kidney disease, unspecified (principal)

== ENCOUNTER → 2022-01-06 | Outpatient (CLI) | payer BC ==
[2022-01-08 14:07] LABS: CREATININE, RANDOM URINE 134.2 mg/dL (Not Estab.)
[2022-01-09 11:07] LABS: METANEPHRINE, PLASMA 47.8 pg/mL (0.0-88.0); NORMETANEPHRINE, PLASMA 72.9 pg/mL (0.0-210.1)
[2022-01-10 00:06] LABS: METANEPH-CREAT RATIO 0.3 (0.0-1.0)
== END | disposition home or self-care (01) ==
LOC: LAB 15:02
PROVIDERS: ATTEND Internal Medicine Cardiovascular Disease
DX: I15.0 Renovascular hypertension (principal)

== ENCOUNTER 2022-11-17 07:14 | Inpatient (IN) | payer BC ==
[2022-11-17] VITALS (11 sets, daily range): BP systolic 123–247; BP diastolic 31–101
[~2022-11-17] VITALS: Ht 187.9 cm; Wt 115.7 kg
[2022-11-17 08:27] LABS: MEAN CELL VOLUME 81.1 fl (80.0-94.0); MEAN CORPUSCULAR HGB CONC 33.3 g/dl (33.0-37.0); MEAN PLATELET VOLUME 9.9 fl (9.6-12.3); PLATELET COUNT AUTOMATED 214 10*3/uL (130-400); RED CELL DISTRI WIDTH 15.1 % (0-14.5); WHITE BLOOD COUNT 14.2 10*3/uL (4.8-10.8)
[2022-11-17 08:30] LABS: MANUAL DIFF REFLEX YES
[2022-11-17 08:36] LABS: ACT PARTIAL THROMBO TIME 37.3 SECONDS (20.0-32.1); INTERNATIONAL NORM RATIO 1.1 (2.0-3.5)
[2022-11-17 08:49] LABS: POTASSIUM 3.5 mmol/L (3.4-5.1); TOTAL PROTEIN 7.1 gm/dL (6.0-8.0)
[2022-11-17 09:05] LABS: TOTAL CELLS COUNTED 100 #CELLS
[2022-11-17 09:06] LABS: BURR CELLS MODERATE; PLATELET SUFFICIENCY NORMAL (NORMAL); POLYCHROMASIA SLIGHT; SCHISTOCYTES FEW; TOXIC GRANULATION SLIGHT
[2022-11-17] MEDS ORDERED: ASPIRIN CHEWABL81 MG PO (10:08)
[2022-11-17] MEDS ORDERED: TRAZODONE50 MG PO (10:09)
[2022-11-17] MEDS ORDERED: MINOXIDIL2.5 MG PO (10:09)
[2022-11-17] MEDS ORDERED: BUMETANIDE2 MG PO (10:10)
[2022-11-17] MEDS ORDERED: ALDACTONE25 M1 PO (10:10)
[2022-11-17] MEDS ORDERED: ZESTRIL10 MG PO (10:11)
[2022-11-17] MEDS ORDERED: AMLODIPINE BESYL5 MG PO (10:14)
[2022-11-17 19:13] LABS: URINE AMPHETAMINES Negative (1000ng/ml); URINE BARBITURATES Negative (200ng/ml); URINE BENZODIAZEPINES Negative (200ng/ml); URINE CANNABINOIDS (THC) Positive (50ng/ml); URINE COCAINE Positive (300ng/ml); URINE METHADONE Negative (300ng/ml); URINE OPIATES Negative (300ng/ml); URINE PHENCYCLIDINE Negative (25ng/ml)
[2022-11-17] MEDS ORDERED: COREG25 MG PO (22:32)
[2022-11-18] VITALS (9 sets, daily range): BP systolic 109–196; BP diastolic 48–70
[2022-11-18 06:47] LABS: HEMATOCRIT 30.9 % (42.0-52.0); MEAN CELL VOLUME 83.5 fl (80.0-94.0); MEAN CORPUSCULAR HGB CONC 32.4 g/dl (33.0-37.0); MEAN PLATELET VOLUME 10.2 fl (9.6-12.3); PLATELET COUNT AUTOMATED 232 10*3/uL (130-400); RED CELL DISTRI WIDTH 15.8 % (0-14.5); WHITE BLOOD COUNT 19.9 10*3/uL (4.8-10.8)
[2022-11-18 06:48] LABS: MANUAL DIFF REFLEX YES
[2022-11-18 07:31] LABS: TOTAL PROTEIN 7.2 gm/dL (6.0-8.0)
[2022-11-18 07:32] LABS: BASOPHILS 1 % (0-1); BURR CELLS MODERATE; POLYCHROMASIA SLIGHT; ROULEAUX SLIGHT; SCHISTOCYTES FEW; TARGET CELLS FEW; TOTAL CELLS COUNTED 100 #CELLS; TOXIC GRANULATION SLIGHT
[2022-11-18 07:33] LABS: DOHLE BODIES FEW; PLATELET SUFFICIENCY NORMAL (NORMAL)
[2022-11-19] VITALS: BP 164/52
[2022-11-19 08:00] VITALS: BP 187/56
[2022-11-19 12:00] VITALS: BP 143/52
[2022-11-19 14:24] VITALS: BP 177/62
[2022-11-19 16:00] VITALS: BP 141/71
[2022-11-19 20:00] VITALS: BP 159/69
[2022-11-20] VITALS: BP 130/58
[2022-11-20 04:00] VITALS: BP 170/79
[2022-11-20 05:43] LABS: POTASSIUM 4.6 mmol/L (3.4-5.1); TOTAL PROTEIN 7.5 gm/dL (6.0-8.0)
[2022-11-20 06:20] LABS: HEMATOCRIT 30.1 % (42.0-52.0); MEAN CELL VOLUME 81.1 fl (80.0-94.0); MEAN CORPUSCULAR HGB 26.4 pg (27.0-31.0); MEAN CORPUSCULAR HGB CONC 32.6 g/dl (33.0-37.0); MEAN PLATELET VOLUME 10.2 fl (9.6-12.3); PLATELET COUNT AUTOMATED 279 10*3/uL (130-400); RED BLOOD COUNT 3.71 10*6/uL (4.50-5.90); RED CELL DISTRI WIDTH 16.1 % (0-14.5); WHITE BLOOD COUNT 19.6 10*3/uL (4.8-10.8)
[2022-11-20 06:21] LABS: MANUAL DIFF REFLEX YES
[2022-11-20 07:03] LABS: ATYPICAL LYMPHS 2 % (0-0); BURR CELLS FEW; OVALOCYTES FEW; PLATELET SUFFICIENCY NORMAL (NORMAL); POLYCHROMASIA SLIGHT; ROULEAUX SLIGHT; TARGET CELLS FEW; TOTAL CELLS COUNTED 100 #CELLS
[2022-11-20 07:04] LABS: SCHISTOCYTES FEW; TOXIC GRANULATION SLIGHT
[2022-11-20 08:00] VITALS: BP 169/66
[2022-11-20 12:00] VITALS: BP 174/64
[2022-11-20 16:00] VITALS: BP 170/62
[2022-11-21] VITALS: BP 177/69
[2022-11-21 06:09] LABS: HEMATOCRIT 31.3 % (42.0-52.0); MEAN CELL VOLUME 81.1 fl (80.0-94.0); MEAN CORPUSCULAR HGB 26.2 pg (27.0-31.0); MEAN CORPUSCULAR HGB CONC 32.3 g/dl (33.0-37.0); MEAN PLATELET VOLUME 9.6 fl (9.6-12.3); RED BLOOD COUNT 3.86 10*6/uL (4.50-5.90); RED CELL DISTRI WIDTH 16.5 % (0-14.5); WHITE BLOOD COUNT 24.7 10*3/uL (4.8-10.8)
[2022-11-21 06:54] LABS: POTASSIUM 3.9 mmol/L (3.4-5.1); TOTAL PROTEIN 7.7 gm/dL (6.0-8.0)
[2022-11-21 07:08] LABS: MANUAL DIFF REFLEX YES; PLATELET COUNT AUTOMATED 387 10*3/uL (130-400)
[2022-11-21 07:26] LABS: ATYPICAL LYMPHS 1 % (0-0); PLATELET SUFFICIENCY NORMAL (NORMAL); TOTAL CELLS COUNTED 100 #CELLS
[2022-11-21 07:27] LABS: OVALOCYTES FEW; POLYCHROMASIA SLIGHT; ROULEAUX SLIGHT; SCHISTOCYTES FEW
[2022-11-21 07:29] LABS: BURR CELLS FEW
[2022-11-21 08:00] VITALS: BP 191/78
[2022-11-21 12:00] VITALS: BP 182/78
[2022-11-21 16:00] VITALS: BP 183/83
[2022-11-21 17:59] VITALS: BP 220/80
[2022-11-21 20:00] VITALS: BP 158/76
[2022-11-22] VITALS: BP 189/75
[2022-11-22 08:00] VITALS: BP 220/64
[2022-11-22 12:00] VITALS: BP 168/71
[2022-11-22 16:00] VITALS: BP 197/76
[2022-11-22 20:00] VITALS: BP 200/62; BP 212/57
[2022-11-23] VITALS (9 sets, daily range): BP systolic 106–204; BP diastolic 43–78
[2022-11-23 15:56] LABS: HEMATOCRIT 32.6 % (42.0-52.0); MEAN CELL VOLUME 83.8 fl (80.0-94.0); MEAN CORPUSCULAR HGB CONC 32.2 g/dl (33.0-37.0); PLATELET COUNT AUTOMATED 610 10*3/uL (130-400); RED BLOOD COUNT 3.89 10*6/uL (4.50-5.90); RED CELL DISTRI WIDTH 16.9 % (0-14.5); WHITE BLOOD COUNT 30.1 10*3/uL (4.8-10.8)
[2022-11-23 16:02] LABS: MANUAL DIFF REFLEX YES
[2022-11-23 16:17] LABS: POTASSIUM 4.3 mmol/L (3.4-5.1); TOTAL PROTEIN 7.4 gm/dL (6.0-8.0)
[2022-11-23 16:22] LABS: ATYPICAL LYMPHS 1 % (0-0); PLATELET SUFFICIENCY HIGH (NORMAL); TOTAL CELLS COUNTED 100 #CELLS
[2022-11-23 16:23] LABS: OVALOCYTES FEW
[2022-11-23 16:24] LABS: ROULEAUX SLIGHT
[2022-11-24 08:00] VITALS: BP 206/69
[2022-11-24 12:00] VITALS: BP 155/73
[2022-11-24 13:45] LABS: HEMATOCRIT 32.6 % (42.0-52.0); MANUAL DIFF REFLEX YES; MEAN CELL VOLUME 83.6 fl (80.0-94.0); MEAN CORPUSCULAR HGB 26.9 pg (27.0-31.0); MEAN CORPUSCULAR HGB CONC 32.2 g/dl (33.0-37.0); MEAN PLATELET VOLUME 8.4 fl (9.6-12.3); PLATELET COUNT AUTOMATED 642 10*3/uL (130-400); RED CELL DISTRI WIDTH 16.7 % (0-14.5); WHITE BLOOD COUNT 29.8 10*3/uL (4.8-10.8)
[2022-11-24 14:09] LABS: ACANTHOCYTES FEW; BURR CELLS FEW; PLATELET SUFFICIENCY HIGH (NORMAL); POLYCHROMASIA SLIGHT; TOTAL CELLS COUNTED 100 #CELLS; TOXIC GRANULATION SLIGHT
[2022-11-24 14:12] LABS: POTASSIUM 4.3 mmol/L (3.4-5.1); TOTAL PROTEIN 7.4 gm/dL (6.0-8.0)
[2022-11-24 16:00] VITALS: BP 156/72
[2022-11-24 20:00] VITALS: BP 191/61
[2022-11-25] VITALS: BP 178/59
[2022-11-25 04:58] LABS: TOTAL PROTEIN 7.1 gm/dL (6.0-8.0)
[2022-11-25 05:21] LABS: POTASSIUM 5.4 mmol/L (3.4-5.1)
[2022-11-25 06:24] LABS: HEMATOCRIT 29.1 % (42.0-52.0); MEAN CELL VOLUME 84.1 fl (80.0-94.0); MEAN CORPUSCULAR HGB 26.9 pg (27.0-31.0); MEAN PLATELET VOLUME 8.9 fl (9.6-12.3); PLATELET COUNT AUTOMATED 626 10*3/uL (130-400); RED BLOOD COUNT 3.46 10*6/uL (4.50-5.90); RED CELL DISTRI WIDTH 16.8 % (0-14.5); WHITE BLOOD COUNT 24.4 10*3/uL (4.8-10.8)
[2022-11-25 06:30] LABS: MANUAL DIFF REFLEX YES
[2022-11-25 07:07] LABS: BURR CELLS FEW; OVALOCYTES FEW; PLATELET SUFFICIENCY HIGH (NORMAL); POLYCHROMASIA SLIGHT; ROULEAUX SLIGHT; SCHISTOCYTES FEW; TOTAL CELLS COUNTED 100 #CELLS
[2022-11-25 07:08] LABS: TOXIC GRANULATION SLIGHT
[2022-11-25 08:00] VITALS: BP 183/44
[2022-11-25 12:00] VITALS: BP 166/60
[2022-11-25 20:00] VITALS: BP 191/64
== END 2022-11-25 22:50 | disposition short-term general hospital (02) | DRG 314 ==
LOC: ED 07:14 → 5E 07:57 → EDHOLD 07:57 → 5E 12:03 → ICCU 11-19 14:16 → 5E 11-21 17:52
PROVIDERS: Emergency Medicine; Internal Medicine Nephrology; ADMIT Internal Medicine; ATTEND Internal Medicine
PROC: 5A1D70Z Performance of Urinary Filtration, Intermittent, Less than 6 Hours Per Day (ICD-10-PCS; 2022-11-17)
PROC: 0JPV3XZ Removal of Tunneled Vascular Access Device from Upper Extremity Subcutaneous Tissue and Fascia, Percutaneous Approach (ICD-10-PCS; principal; 2022-11-18)
PROC: 05PYX3Z Removal of Infusion Device from Upper Vein, External Approach (ICD-10-PCS; 2022-11-18)
PROC: 5A1D70Z Performance of Urinary Filtration, Intermittent, Less than 6 Hours Per Day (ICD-10-PCS; 2022-11-18)
PROC: B24BZZ4 Ultrasonography of Heart with Aorta, Transesophageal (ICD-10-PCS; 2022-11-23)
DX: T82.7XXA Infection and inflammatory reaction due to other cardiac and vascular devices, implants and grafts, initial encounter (principal); A41.02 Sepsis due to Methicillin resistant Staphylococcus aureus; N18.6 End stage renal disease; L02.213 Cutaneous abscess of chest wall; I12.0 Hypertensive chronic kidney disease with stage 5 chronic kidney disease or end stage renal disease; L02.11 Cutaneous abscess of neck; D64.9 Anemia, unspecified; E11.51 Type 2 diabetes mellitus with diabetic peripheral angiopathy without gangrene; Y83.8 Other surgical procedures as the cause of abnormal reaction of the patient, or of later complication, without mention of misadventure at the time of the procedure; E87.5 Hyperkalemia; F17.210 Nicotine dependence, cigarettes, uncomplicated; F12.10 Cannabis abuse, uncomplicated; F14.10 Cocaine abuse, uncomplicated; E83.39 Other disorders of phosphorus metabolism; D63.8 Anemia in other chronic diseases classified elsewhere; E11.22 Type 2 diabetes mellitus with diabetic chronic kidney disease; Y92.89 Other specified places as the place of occurrence of the external cause; Z82.49 Family history of ischemic heart disease and other diseases of the circulatory system; Z91.041 Radiographic dye allergy status; Z79.899 Other long term (current) drug therapy; Z79.82 Long term (current) use of aspirin

== ENCOUNTER → 2022-12-14 | Outpatient (CLI) | payer BC ==
[~2022-12-14] MED LIST changes: +ALDACTONE25 M1 PO; +AMLODIPINE BESYL5 MG PO; +ASPIRIN CHEWABL81 MG PO; +BUMETANIDE2 MG PO; +COREG25 MG PO; +MINOXIDIL2.5 MG PO; +TRAZODONE50 MG PO; +ZESTRIL10 MG PO
[2022-12-14 16:22] LABS: BASO % 0.4 % (0.0-1.0); EOS # 0.9 10*3/uL (0.0-0.4); EOS % 7.6 % (1.0-4.0); HEMATOCRIT 31.1 % (42.0-52.0); LYMPH # 1.2 10*3/uL (1.3-4.4); LYMPH % 11.1 % (27.0-41.0); MEAN CELL VOLUME 84.7 fl (80.0-94.0); MEAN CORPUSCULAR HGB 27.2 pg (27.0-31.0); MEAN CORPUSCULAR HGB CONC 32.2 g/dl (33.0-37.0); MEAN PLATELET VOLUME 8.1 fl (9.6-12.3); MONO # 1.1 10*3/uL (0.1-1.0); MONO % 10.2 % (3.0-9.0); NEUT # 7.9 10*3/uL (2.3-7.9); NEUT % 70.5 % (47.0-73.0); PLATELET COUNT AUTOMATED 449 10*3/uL (130-400); RED BLOOD COUNT 3.67 10*6/uL (4.50-5.90); WHITE BLOOD COUNT 11.2 10*3/uL (4.8-10.8)
[2022-12-14 16:56] LABS: POTASSIUM 4.5 mmol/L (3.4-5.1); TOTAL PROTEIN 8.9 gm/dL (6.0-8.0)
== END | disposition home or self-care (01) ==
LOC: LAB 16:07
PROVIDERS: ATTEND Internal Medicine Infectious Disease
DX: R78.81 Bacteremia (principal); B95.62 Methicillin resistant Staphylococcus aureus infection as the cause of diseases classified elsewhere

== ENCOUNTER 2023-01-14 07:02 | Inpatient (IN) | payer MEDICAID ==
[~2023-01-14] VITALS: Ht 187.9 cm; Wt 105.3 kg
[2023-01-14 07:25] VITALS: BP 157/61
[2023-01-14 08:07] LABS: HEMATOCRIT 32.4 % (42.0-52.0); MANUAL DIFF REFLEX YES; MEAN CELL VOLUME 84.8 fl (80.0-94.0); MEAN CORPUSCULAR HGB 27.7 pg (27.0-31.0); MEAN CORPUSCULAR HGB CONC 32.7 g/dl (33.0-37.0); MEAN PLATELET VOLUME 9.6 fl (9.6-12.3); PLATELET COUNT AUTOMATED 302 10*3/uL (130-400); RED BLOOD COUNT 3.82 10*6/uL (4.50-5.90); RED CELL DISTRI WIDTH 15.6 % (0-14.5)
[2023-01-14 08:26] LABS: ALKALINE PHOSPHATASE 101 U/L (46-116); BUN 42 mg/dl (9-23); CHLORIDE 102 mmol/L (98-107); POTASSIUM 3.5 mmol/L (3.4-5.1)
[2023-01-14 08:28] LABS: SGPT/ALT < 7 U/L (10-49)
[2023-01-14 08:39] LABS: TOTAL CELLS COUNTED 100 #CELLS
[2023-01-14 08:40] LABS: BURR CELLS MODERATE; POLYCHROMASIA SLIGHT; SCHISTOCYTES FEW
[2023-01-14 08:41] LABS: PLATELET SUFFICIENCY NORMAL (NORMAL)
[2023-01-14 12:37] LABS: BILIRUBIN Negative (Negative); BLOOD Trace-Lysed (Negative); CLARITY Clear (Clear); COLOR Yellow (Yellow); GLUCOSE Negative (Negative); KETONE Negative (Negative); LEUKO ESTERASE Negative (Negative); NITRITE Negative (Negative); PH 5.5 (4.5-8.0); SPECIFIC GRAVITY 1.015 (1.001-1.030)
[2023-01-14 12:55] LABS: MUCOUS 1+
[2023-01-14 12:56] LABS: URINE AMPHETAMINES Negative (1000ng/ml); URINE BARBITURATES Negative (200ng/ml); URINE BENZODIAZEPINES Negative (200ng/ml); URINE CANNABINOIDS (THC) Positive (50ng/ml); URINE COCAINE Positive (300ng/ml); URINE METHADONE Negative (300ng/ml); URINE OPIATES Negative (300ng/ml); URINE PHENCYCLIDINE Negative (25ng/ml)
[2023-01-14 14:00] VITALS: BP 149/67
[2023-01-14] MEDS ORDERED: GOOD SENSE ASP325 MG PO (14:11)
[2023-01-14 16:00] VITALS: BP 149/67; BP 164/69
[2023-01-14 20:00] VITALS: BP 182/69
[2023-01-14 22:24] VITALS: BP 102/52
[2023-01-15] VITALS: BP 102/52
[2023-01-15 04:23] LABS: HEMATOCRIT 30.6 % (42.0-52.0); MEAN CORPUSCULAR HGB 27.8 pg (27.0-31.0); MEAN CORPUSCULAR HGB CONC 32.4 g/dl (33.0-37.0); PLATELET COUNT AUTOMATED 334 10*3/uL (130-400); RED BLOOD COUNT 3.56 10*6/uL (4.50-5.90); RED CELL DISTRI WIDTH 15.9 % (0-14.5); WHITE BLOOD COUNT 18.7 10*3/uL (4.8-10.8)
[2023-01-15 04:26] LABS: MANUAL DIFF REFLEX YES
[2023-01-15 04:43] LABS: ALKALINE PHOSPHATASE 95 U/L (46-116); CHLORIDE 103 mmol/L (98-107); POTASSIUM 4.3 mmol/L (3.4-5.1); TOTAL PROTEIN 7.5 gm/dL (6.0-8.0)
[2023-01-15 04:52] LABS: PLATELET SUFFICIENCY NORMAL (NORMAL); TOTAL CELLS COUNTED 100 #CELLS
[2023-01-15 04:53] LABS: BURR CELLS FEW
[2023-01-15 04:54] LABS: POLYCHROMASIA SLIGHT
[2023-01-15 05:04] LABS: BUN 52 mg/dl (9-23); SGPT/ALT < 7 U/L (10-49)
[2023-01-15 05:44] VITALS: BP 158/70
[2023-01-15 08:00] VITALS: BP 184/73
[2023-01-15 12:00] VITALS: BP 101/83
[2023-01-15 16:00] VITALS: BP 169/63
[2023-01-15 20:00] VITALS: BP 113/35
[2023-01-16] VITALS: BP 102/32
[2023-01-16 08:00] VITALS: BP 120/54
[2023-01-16 12:00] VITALS: BP 143/50; BP 96/48
[2023-01-16 20:00] VITALS: BP 153/54
[2023-01-17] VITALS: BP 133/49
[2023-01-17 04:24] LABS: HEMATOCRIT 29.7 % (42.0-52.0); MEAN CELL VOLUME 85.1 fl (80.0-94.0); MEAN CORPUSCULAR HGB 28.4 pg (27.0-31.0); MEAN CORPUSCULAR HGB CONC 33.3 g/dl (33.0-37.0); MEAN PLATELET VOLUME 9.6 fl (9.6-12.3); PLATELET COUNT AUTOMATED 386 10*3/uL (130-400); RED BLOOD COUNT 3.49 10*6/uL (4.50-5.90); WHITE BLOOD COUNT 17.4 10*3/uL (4.8-10.8)
[2023-01-17 04:25] LABS: MANUAL DIFF REFLEX YES
[2023-01-17 04:41] LABS: POTASSIUM 4.2 mmol/L (3.4-5.1)
[2023-01-17 04:49] LABS: ATYPICAL LYMPHS 1 % (0-0); TOTAL CELLS COUNTED 100 #CELLS
[2023-01-17 04:50] LABS: PLATELET SUFFICIENCY NORMAL (NORMAL)
[2023-01-17 08:00] VITALS: BP 106/50
[2023-01-17 12:00] VITALS: BP 122/48
[2023-01-17 16:00] VITALS: BP 140/54
[2023-01-17 20:00] VITALS: BP 181/70
[2023-01-18] VITALS (7 sets, daily range): BP systolic 121–185; BP diastolic 34–69
[2023-01-18 05:06] LABS: ALKALINE PHOSPHATASE 88 U/L (46-116); BUN 56 mg/dl (9-23); CHLORIDE 101 mmol/L (98-107); CPK 24 U/L (34-171); POTASSIUM 4.4 mmol/L (3.4-5.1); TOTAL PROTEIN 7.5 gm/dL (6.0-8.0)
[2023-01-18 05:07] LABS: SGPT/ALT < 7 U/L (10-49)
[2023-01-18 06:12] LABS: HEMATOCRIT 29.3 % (42.0-52.0); MEAN CELL VOLUME 87.5 fl (80.0-94.0); MEAN CORPUSCULAR HGB 27.2 pg (27.0-31.0); MEAN CORPUSCULAR HGB CONC 31.1 g/dl (33.0-37.0); MEAN PLATELET VOLUME 9.9 fl (9.6-12.3); PLATELET COUNT AUTOMATED 442 10*3/uL (130-400); RED BLOOD COUNT 3.35 10*6/uL (4.50-5.90); RED CELL DISTRI WIDTH 16.3 % (0-14.5); WHITE BLOOD COUNT 20.1 10*3/uL (4.8-10.8)
[2023-01-18 06:30] LABS: MANUAL DIFF REFLEX YES
[2023-01-18 07:49] LABS: PLATELET SUFFICIENCY HIGH (NORMAL); POLYCHROMASIA MODERATE; SCHISTOCYTES FEW; TOTAL CELLS COUNTED 100 #CELLS
[2023-01-19] VITALS (9 sets, daily range): BP systolic 154–197; BP diastolic 46–80
[2023-01-19 06:58] LABS: HEMATOCRIT 28.7 % (42.0-52.0); MANUAL DIFF REFLEX YES; MEAN CELL VOLUME 86.7 fl (80.0-94.0); MEAN CORPUSCULAR HGB 28.4 pg (27.0-31.0); MEAN CORPUSCULAR HGB CONC 32.8 g/dl (33.0-37.0); MEAN PLATELET VOLUME 9.3 fl (9.6-12.3); PLATELET COUNT AUTOMATED 453 10*3/uL (130-400); RED BLOOD COUNT 3.31 10*6/uL (4.50-5.90); RED CELL DISTRI WIDTH 16.2 % (0-14.5)
[2023-01-19 07:25] LABS: ALKALINE PHOSPHATASE 92 U/L (46-116); BUN 50 mg/dl (9-23); CHLORIDE 103 mmol/L (98-107); POTASSIUM 4.5 mmol/L (3.4-5.1); TOTAL PROTEIN 7.7 gm/dL (6.0-8.0)
[2023-01-19 07:28] LABS: SGPT/ALT < 7 U/L (10-49)
[2023-01-19 07:42] LABS: BURR CELLS FEW; OVALOCYTES FEW; PLATELET SUFFICIENCY HIGH (NORMAL); POLYCHROMASIA SLIGHT; ROULEAUX SLIGHT; TOTAL CELLS COUNTED 100 #CELLS; TOXIC GRANULATION SLIGHT
[2023-01-19 07:43] LABS: SCHISTOCYTES FEW
== END 2023-01-19 22:10 | disposition short-term general hospital (02) | DRG 721 ==
LOC: ED 07:02 → 5E 11:58 → EDHOLD 11:58 → 5E 12:26
PROVIDERS: Internal Medicine; Internal Medicine Infectious Disease; Internal Medicine Nephrology; ADMIT Internal Medicine; ATTEND Internal Medicine
PROC: 5A1D70Z Performance of Urinary Filtration, Intermittent, Less than 6 Hours Per Day (ICD-10-PCS; 2023-01-15)
PROC: B24BZZ4 Ultrasonography of Heart with Aorta, Transesophageal (ICD-10-PCS; principal; 2023-01-18)
PROC: 0JPT3XZ Removal of Tunneled Vascular Access Device from Trunk Subcutaneous Tissue and Fascia, Percutaneous Approach (ICD-10-PCS; 2023-01-19)
PROC: 02PYX3Z Removal of Infusion Device from Great Vessel, External Approach (ICD-10-PCS; 2023-01-19)
DX: T80.211A Bloodstream infection due to central venous catheter, initial encounter (principal); N18.6 End stage renal disease; F12.90 Cannabis use, unspecified, uncomplicated; E11.22 Type 2 diabetes mellitus with diabetic chronic kidney disease; E83.39 Other disorders of phosphorus metabolism; T82.7XXA Infection and inflammatory reaction due to other cardiac and vascular devices, implants and grafts, initial encounter; E11.51 Type 2 diabetes mellitus with diabetic peripheral angiopathy without gangrene; L02.213 Cutaneous abscess of chest wall; A41.02 Sepsis due to Methicillin resistant Staphylococcus aureus; E87.5 Hyperkalemia; E11.42 Type 2 diabetes mellitus with diabetic polyneuropathy; J15.212 Pneumonia due to Methicillin resistant Staphylococcus aureus; Y84.1 Kidney dialysis as the cause of abnormal reaction of the patient, or of later complication, without mention of misadventure at the time of the procedure; I12.0 Hypertensive chronic kidney disease with stage 5 chronic kidney disease or end stage renal disease; Z88.8 Allergy status to other drugs, medicaments and biological substances; Z99.2 Dependence on renal dialysis; Z88.1 Allergy status to other antibiotic agents; Z91.041 Radiographic dye allergy status; Z80.8 Family history of malignant neoplasm of other organs or systems; Z82.49 Family history of ischemic heart disease and other diseases of the circulatory system; Z22.322 Carrier or suspected carrier of Methicillin resistant Staphylococcus aureus; Y92.89 Other specified places as the place of occurrence of the external cause

== ENCOUNTER 2023-02-22 23:09 | Emergency (ER) | payer MEDICAID ==
[~2023-02-22] VITALS: Ht 187.9 cm; Wt 110.2 kg
[~2023-02-22 23:09] MED LIST changes: +GOOD SENSE ASP325 MG PO
[2023-02-22 23:31] LABS: HEMATOCRIT 21.6 % (42.0-52.0); MEAN CELL VOLUME 88.2 fl (80.0-94.0); MEAN CORPUSCULAR HGB 27.3 pg (27.0-31.0); MEAN PLATELET VOLUME 7.6 fl (9.6-12.3); PLATELET COUNT AUTOMATED 712 10*3/uL (130-400); RED BLOOD COUNT 2.45 10*6/uL (4.50-5.90); RED CELL DISTRI WIDTH 15.4 % (0-14.5); WHITE BLOOD COUNT 21.3 10*3/uL (4.8-10.8)
[2023-02-22 23:35] LABS: MANUAL DIFF REFLEX YES
[2023-02-22 23:43] LABS: ACT PARTIAL THROMBO TIME 33.4 SECONDS (20.0-32.1); INTERNATIONAL NORM RATIO 1.1 (2.0-3.5)
[2023-02-22 23:53] LABS: MICROCYTOSIS SLIGHT; PLATELET SUFFICIENCY HIGH (NORMAL); POTASSIUM 3.8 mmol/L (3.4-5.1); TOTAL CELLS COUNTED 100 #CELLS; TOTAL PROTEIN 7.9 gm/dL (6.0-8.0)
[2023-02-23] VITALS (10 sets, daily range): BP systolic 87–119; BP diastolic 49–72
== END 2023-02-23 05:00 | disposition short-term general hospital (02) ==
LOC: ED 23:09
PROVIDERS: Internal Medicine
DX: I21.4 Non-ST elevation (NSTEMI) myocardial infarction (principal); D64.9 Anemia, unspecified; E11.22 Type 2 diabetes mellitus with diabetic chronic kidney disease; I13.2 Hypertensive heart and chronic kidney disease with heart failure and with stage 5 chronic kidney disease, or end stage renal disease; N18.6 End stage renal disease; I50.9 Heart failure, unspecified; Z88.8 Allergy status to other drugs, medicaments and biological substances; Z91.041 Radiographic dye allergy status; Z98.890 Other specified postprocedural states; Z95.5 Presence of coronary angioplasty implant and graft; F12.90 Cannabis use, unspecified, uncomplicated; F17.200 Nicotine dependence, unspecified, uncomplicated; F17.210 Nicotine dependence, cigarettes, uncomplicated

== ENCOUNTER 2024-07-21 07:36 | Emergency (ER) | payer OTHER ==
[~2024-07-21] VITALS: Ht 187.9 cm; Wt 107.5 kg
[2024-07-21] MEDS ORDERED: fentaNYL CITRATE/PF 50 MCG/ML SYRINGE IV ONE (08:05)
[2024-07-21] MEDS ORDERED: Ondansetron Hydrochloride 4 MG/2 ML VIAL IV ONE (08:05)
[2024-07-21 08:20] LABS: BASO % 0.1 % (0.0-1.0); EOS # 0.2 10*3/uL (0.0-0.4); EOS % 2.1 % (1.0-4.0); HEMATOCRIT 32.9 % (42.0-52.0); MEAN CELL VOLUME 96.5 fl (80.0-94.0); MEAN CORPUSCULAR HGB 28.7 pg (27.0-31.0); MEAN CORPUSCULAR HGB CONC 29.8 g/dl (33.0-37.0); MEAN PLATELET VOLUME 10.1 fl (9.6-12.3); MONO % 13.9 % (3.0-9.0); NEUT # 4.8 10*3/uL (2.3-7.9); NEUT % 67.7 % (47.0-73.0); PLATELET COUNT AUTOMATED 257 10*3/uL (130-400); RED BLOOD COUNT 3.41 10*6/uL (4.50-5.90); RED CELL DISTRI WIDTH 17.9 % (0-14.5); WHITE BLOOD COUNT 7.1 10*3/uL (4.8-10.8)
[2024-07-21 08:38] LABS: POTASSIUM 4.4 mmol/L (3.4-5.1)
[2024-07-21] MEDS ORDERED: Sulfamethoxazole/Trimethopri 1 TAB TAB PO ONE (09:55)
[2024-07-21] MEDS ORDERED: CEPHALEXIN500 M1 PO (10:05)
[2024-07-21] MEDS ORDERED: SEPTDS PO (10:05)
[2024-07-21] MEDS ORDERED: ceFAZolin sodium/sodium chlor 10 ML IV ONE (10:50)
[2024-07-21] MEDS ORDERED: TRAMADOL HCL50 MG PO (12:27)
== END 2024-07-21 12:26 | disposition home or self-care (01) ==
LOC: ED 07:36
PROVIDERS: Emergency Medicine
DX: L03.116 Cellulitis of left lower limb (principal); E78.5 Hyperlipidemia, unspecified; M79.672 Pain in left foot; E11.22 Type 2 diabetes mellitus with diabetic chronic kidney disease; I12.0 Hypertensive chronic kidney disease with stage 5 chronic kidney disease or end stage renal disease; N18.6 End stage renal disease; M79.89 Other specified soft tissue disorders; F12.90 Cannabis use, unspecified, uncomplicated; F17.200 Nicotine dependence, unspecified, uncomplicated; Z91.041 Radiographic dye allergy status; Z88.1 Allergy status to other antibiotic agents; Z88.8 Allergy status to other drugs, medicaments and biological substances; Z98.890 Other specified postprocedural states; Z95.5 Presence of coronary angioplasty implant and graft

== ENCOUNTER → 2024-09-04 | Outpatient (CLI) | payer OTHER ==
[~2024-09-04] MED LIST changes: +CEPHALEXIN500 M1 PO; +SEPTDS PO; +TRAMADOL HCL50 MG PO
== END | disposition home or self-care (01) ==
LOC: RAD 13:25
PROVIDERS: ATTEND Internal Medicine
DX: R06.02 Shortness of breath (principal); R05.9 Cough, unspecified; I51.7 Cardiomegaly

== ENCOUNTER 2025-03-27 13:03 | Emergency (ER) | payer OTHER ==
[~2025-03-27] VITALS: Ht 187.9 cm; Wt 106.1 kg
[2025-03-27] MEDS ORDERED: ATORVASTATIN CA40 M1 PO (13:20)
[2025-03-27] MEDS ORDERED: HYDRALAZINE HC100 MG PO (13:22)
[2025-03-27] MEDS ORDERED: SODIUM CHLORIDE 0.9% 1,000 ML IV ONE (13:45)
[2025-03-27] MEDS ORDERED: Ondansetron Hydrochloride 4 MG/2 ML VIAL IV ONE (13:45)
[2025-03-27 13:54] LABS: BASO # 0.0 10*3/uL (0.0-0.1); BASO % 0.5 % (0.0-1.0); EOS # 0.3 10*3/uL (0.0-0.4); EOS % 3.1 % (1.0-4.0); MEAN CELL VOLUME 94.3 fl (80.0-94.0); MEAN CORPUSCULAR HGB 29.6 pg (27.0-31.0); MEAN PLATELET VOLUME 9.8 fl (9.6-12.3); MONO # 1.0 10*3/uL (0.1-1.0); MONO % 12.3 % (3.0-9.0); NEUT # 6.0 10*3/uL (2.3-7.9); NEUT % 70.9 % (47.0-73.0); NUCLEATED RED BLOOD CELL 0.0 % (0.0-0.0); NUCLEATED RED BLOOD CELL 0.0 10*3/uL (0.0-0.0); PLATELET COUNT AUTOMATED 298 10*3/uL (130-400); RED CELL DISTRI WIDTH 16.9 % (0-14.5)
[2025-03-27 14:14] LABS: BUN 26.0 mg/dl (9-23); CPK 163.0 U/L (34-171)
[2025-03-27] MEDS ORDERED: PERCOCET 5-3251 EACH PO (15:55)
== END 2025-03-27 16:10 | disposition home or self-care (01) ==
LOC: ED 13:03
PROVIDERS: Nurse Practitioner Family
DX: G90.522 Complex regional pain syndrome I of left lower limb (principal); M79.662 Pain in left lower leg; R22.42 Localized swelling, mass and lump, left lower limb; I10 Essential (primary) hypertension; E11.9 Type 2 diabetes mellitus without complications; F17.210 Nicotine dependence, cigarettes, uncomplicated; F12.90 Cannabis use, unspecified, uncomplicated; Z98.890 Other specified postprocedural states; Z88.5 Allergy status to narcotic agent; Z88.8 Allergy status to other drugs, medicaments and biological substances